=== PATIENT | male | born 1990 | race African-American/Black ===

== ENCOUNTER 2018-03-04 03:42 | Emergency (ER) | payer SELFPAY ==
[~2018-03-04] VITALS: Ht 175.2 cm; Wt 66.7 kg
[2018-03-04 04:02] LABS: HEMATOCRIT 46.3 % (42.0-52.0); HEMOGLOBIN 15.8 g/dl (14.0-18.0); MEAN CELL VOLUME 92.6 fl (80.0-94.0); MEAN CORPUSCULAR HGB 31.6 pg (27.0-31.0); MEAN CORPUSCULAR HGB CONC 34.1 g/dl (33.0-37.0); PLATELET COUNT AUTOMATED 226 10*3/uL (130-400); RED CELL DISTRI WIDTH 12.6 % (0-14.5); WHITE BLOOD COUNT 6.6 10*3/uL (4.8-10.8)
[2018-03-04 04:12] LABS: ACT PARTIAL THROMBO TIME 20.7 SECONDS (20.8-31.5)
[2018-03-04 04:18] LABS: ALBUMIN 4.3 gm/dl (3.1-4.5); ALKALINE PHOSPHATASE 81 U/L (45-117); BUN 12 mg/dl (7-24); CHLORIDE 104 mmol/L (98-107); CREATININE 1.13 mg/dL (0.70-1.30); POTASSIUM 3.4 mmol/L (3.5-5.1); SGOT/AST 23 IU/L (3-35); SGPT/ALT 30 U/L (12-78); SODIUM 139 mmol/L (136-145); TOTAL PROTEIN 8.2 gm/dL (6.4-8.2)
[2018-03-04 04:21] LABS: BASOPHILS 1 % (0-1); TOTAL CELLS COUNTED 100 #CELLS
[2018-03-04 04:22] LABS: PLATELET SUFFICIENCY NORMAL (NORMAL)
== END 2018-03-04 05:04 | disposition short-term general hospital (02) ==
LOC: ED 03:42
PROVIDERS: Emergency Medicine Emergency Medical Services
DX: S31.000A Unspecified open wound of lower back and pelvis without penetration into retroperitoneum, initial encounter (principal); W34.09XA Accidental discharge from other specified firearms, initial encounter; Y93.89 Activity, other specified; Y92.89 Other specified places as the place of occurrence of the external cause; Y99.9 Unspecified external cause status